=== PATIENT | male | born 1975 | race Caucasian/White ===

== ENCOUNTER → 2023-05-29 14:27 | Outpatient (REF) | payer BC, SELFPAY | LOC: HWRAD 14:27 | PROVIDERS: ATTENDING PHYSICIAN Nurse Practitioner Family | DX: R50.9 Fever, unspecified (principal); R05.9 Cough, unspecified; R53.83 Other fatigue | CPT/HCPCS: 71046 ==

== ENCOUNTER → 2023-06-24 07:17 | Outpatient (REF) | payer BC, SELFPAY | LOC: DHCBS HW 07:17 | PROVIDERS: ATTENDING PHYSICIAN Internal Medicine Cardiovascular Disease; FAMILY PHYSICIAN Nurse Practitioner Family | DX: I51.7 Cardiomegaly (principal) | CPT/HCPCS: 93306 ==

== ENCOUNTER 2024-04-20 12:00 | Emergency (ER) | payer BC, SELFPAY ==
[2024-04-20 12:08] VITALS: BP 139/102
[2024-04-20 12:54] LABS: % Basophils 0.5 % (0-2); % Eosinophils 1.1 % (0-6); % Immature Granulocytes 0.6 % (0-0.5); % Lymphocytes 19.7 % (20.5-51.1); % Neutrophils 65.1 % (42.2-75.2); Absolute Eosinophils 0.1 10^3/uL (0-0.7); Absolute Immature Granulocytes 0.1 10^3/uL (0-0.05); Absolute Lymphocytes 1.6 10^3/uL (1.2-3.4); Absolute Monocytes 1.1 10^3/uL (0.1-0.6); Absolute Neutrophils 5.4 10^3/uL (1.4-6.5); Hematocrit 47.4 % (39.0-52.0); Mean Corp Hgb Conc. 31.6 g/dL (33.0-37.0); Mean Corpuscular Volume 85.4 fL (80.0-94.0); Nucleated Red Blood Cells % 0 % (-); Platelet Count 212 10^3/uL (130-400); Red Blood Cell Count 5.55 10^6/uL (4.70-6.10); Red Cell Dist. Width 14.3 % (11.5-14.5); White Blood Cell Count 8.3 10^3/uL (4.8-10.8)
--- NOTE | 2024-04-20 12:54 | ED.GENMED ---
History of Present Illness
General
Chief Complaint: Abdominal Symptoms
Source: patient
Exam Limitations: none
Time Seen by Provider: 04/20/24 12:22
History of Present Illness
History of Present Illness:
48yoM with a history of hypertension and prior aortic dissection in 2016 s/p repair presenting for evaluation of diarrhea. Symptoms have been ongoing for 4 days. He is having 10+ watery bowel movements daily. He also reports nausea but denies any
vomiting. He has not been eating much due to his symptoms and has been having early satiety. He is having intermittent RLQ abdominal pain which is a sharp pain that lasts about 10 seconds at a time. This has occurred about 6x in the past few days.
He denies any current pain. No fevers. No sick contacts, recent travel, suspicious food intake, or recent antibiotics. Prior abdominal surgeries include a cholecystectomy. He reports having 60% of his small intestine removed in 2016 after his aortic
dissection.
Past History
Past History
ED Past Medical History: HTN, Psychiatric, Other (Aortic dissection. Diverticulitis, ) and Other (Diverticulitis)
ED Past Surgical History: Bowel resection (Small bowel 6% removed, and 15% sigmoid resection), Cholecystectomy and Other (ruptured AAA repair, Left carotid subclavian bypass. )
Social History
Tobacco: Smoker
Alcohol: None
Drug: None
Personal:
Living: with family
Employment: Employed
Phy Exam
General Physical Exam
General Presentation: well appearing and no apparent distress
General age: appears stated age
General Skin: warm and dry
General Habitus: normal
General Mental: alert
General Hydration: appears well hydrated
ENT Exam
ENT Exam: normocephalic
Pulmonary Exam
Pulmonary Exam: no respiratory distress
Gastrointestinal Exam
Gastrointestinal Exam: non tender, soft, non distended, surgical scar and other (Chronic wound noted to abdominal wall without signs of infection.)
Neurological Exam
Neurological Exam: alert
[place] Coma Scale
Eye Opening: Spontaneous
Verbal Response: Oriented
Motor Response: Obeys Commands
GCS Total Score: 15
Skin Exam
Skin Exam: normal color and warm/dry
Psychiatric Exam
Psychiatric Exam: normal mood/affect
Course
Orders/Labs/Results
Orders:
Orders
04/20/24 12:36
IV Insert/Care/Rem.- Treatment PRN
04/20/24 12:42
Complete Blood Count/With Diff Urgent
Comprehensive Metabolic Panel Urgent
Lipase Urgent
04/20/24 12:51
0.9% Sodium Chloride 500 ml [Nss] 500 ml IV BOLUS
Iohexol [Omnipaque] See Protocol PO NOW STA
04/20/24 12:52
CT Abd/pel W Iv And Oral Contr Urgent
Comment:
Reason For Exam: abd pain, diarrhea
04/20/24 13:03
COVID-19 Antigen Urgent
Source: Nasal Swab
Influenza A+B Rapid Molecular Urgent
AR[facility] Source: Nasal Swab
Specimen Description:
04/20/24 13:36
Urinalysis Reflex To Culture Urgent
Date Specimen was Collected: 04/20/24
Time Specimen was Collected: 12:36
Urine Microscopic Reflex Cult Urgent
CDIFF [C difficile Antigen & Toxins] Urgent
[facility]MIN Source: Feces/Stool
Specimen Description:
Date Specimen was Collected: 04/20/24
Time Specimen was Collected: 13:35
Norovirus by PCR Urgent
[facility]MIN Source: Feces/Stool
Specimen Description:
Date Specimen was Collected: 04/20/24
Time Specimen was Collected: 13:35
Stool Culture Urgent
ARMIN Source: Feces/Stool
Specimen Description:
Date Specimen was Collected: 04/20/24
Time Specimen was Collected: 13:35
Abnormal Lab Results
04/20/24 04/20/24
12:42 13:36
MCHC 31.6 L g/dL
(33.0-37.0)
Abs Immat Gran (auto) 0.1 H 10^3/uL
(0-0.05)
Absolute Monos (auto) 1.1 H 10^3/uL
(0.1-0.6)
Immature Gran % 0.6 H %
(0-0.5)
Lymphocytes % 19.7 L %
(20.5-51.1)
Monocytes % 13.0 H %
(1.7-9.3)
Carbon Dioxide 31 H mmol/L
(22-30)
Glucose 101 H mg/dl
(70-99)
Ur Occult Blood Reflex 1+ A
(Negative)
Urine RBC 3-6 A /HPF
(0-2)
Urine Bacteria (Reflex) Few A
(Negative)
04/20/24 12:42
04/20/24 12:42
Vital Signs
Initial and Last Documented VS:
Initial Vital Signs
Temp Pulse Resp BP Pulse Ox
100.1 F 89 18 139/102 97
04/20/24 12:08 04/20/24 12:08 04/20/24 12:08 04/20/24 12:08 04/20/24 12:08
Last Documented Vital Signs
Temp Pulse Resp BP Pulse Ox
100.1 F 89 19 138/85 96
04/20/24 12:08 04/20/24 16:10 04/20/24 16:10 04/20/24 16:10 04/20/24 16:10
MDM/Problems Addressed
Differential Diagnosis Includes:
48yoM here with diarrhea x 4 days. Also having nausea and intermittent abd pain. No fevers at home. Temp 100.1 in triage. Remainder of vitals are normal. He is well appearing in no distress. Exam reassuring. Differential diagnosis includes but is
not limited to: viral illness, C.diff, bacterial diarrhea, colitis, diverticulitis, dehydration
Initial ED plan: Check abdominal labs, stool testing, COVID/flu swab, and CT abdomen. IV fluid bolus.
*Critical Care Note
Total Time (30-74mins, 75-104mins- exclusive of procedures): Not Applicable
Update Note
Update Note:
Labs unremarkable including normal white count, electrolytes, and renal function. UA with microscopic hematuria without signs of infection. COVID/flu testing negative. CT abdomen is negative for acute findings. C. difficile testing negative.
Remainder of stool studies are pending. Patient remains well-appearing on reassessment. No indication for hospitalization. Supportive care discussed and prescription provided for Zofran. Advised follow-up with PCP. He was also given a referral
to urology for his microscopic hematuria. ED return precautions discussed. He was discharged in stable condition.
ED Attending Note
-
Portions of this chart may have been created with voice recognition software.� Occasional wrong word or��sound alike� substitutions may have occurred due to the inherent limitations of voice recognition software.
Discharge Plan
Departure
Patient Disposition: Home (Routine Discharge)
Date of Disposition: 04/20/24
Time of Disposition: 15:52
Patient with high blood pressure during this ER visit?: No
Discharge Problem:
Acute diarrhea, Microscopic hematuria
Instructions: Diarrhea in adults - ED discharge instructions
Prescriptions:
New
ondansetron 4 mg tablet,disintegrating
4 mg PO Q6H PRN (Reason: nausea and vomiting) Qty: 20 0RF
No Action
aspirin 81 MG tablet,delayed release (DR/EC)
81 mg PO DAILY
lisinopril-hydrochlorothiazide 1 EACH tablet
1 ea PO DAILY 90 Days Qty: 90 0RF
Rx Instructions:
Please apply [facility] program pricing. Patient without Rx insurance. Thank you.
hydrochlorothiazide 12.5 MG tablet
12.5 mg PO DAILY
ondansetron HCl 4 MG tablet
4 mg PO DAILYPRN PRN (Reason: nausea/vomiting)
acetaminophen [Tylenol Extra Strength] 500 MG tablet
1,000 mg PO BIDPRN PRN (Reason: mild pain)
meclizine 25 MG tablet
25 mg PO BID
escitalopram oxalate 10 MG tablet
10 mg PO HS
Patient Comments:
pt. takes half tablet.
amoxicillin-pot clavulanate 1 TABLET tablet
1 tab PO Q12 Qty: 19 0RF
prednisone 20 mg tablet
40 mg PO DAILY Qty: 10 0RF
Referrals:
George Marie MD [Active] -
Marky Betancourt MD [Family Provider] -
Activity Restrictions/Additional Instructions:
Drink plenty of fluids and eat a bland diet (bananas, rice, applesauce, toast). Take Zofran as needed for nausea.
Please follow-up with your family doctor in 3-4 days. You should also follow-up with urology for the blood seen in your urine.
Return to the ER with any new or worsening symptoms.
Interventions
Interventions:
*Risk Screen - Suicide Last Done: 04/20/24 12:08
*General Assessment Last Done: 04/20/24 12:08
*Neglect/Abuse Screening Last Done: 04/20/24 12:08
ED- Fall Risk Assessment Last Done: 04/20/24 12:43
*Nursing Disposition Last Done: 04/20/24 16:10
WF-Hjagcq-Aamjxqfxct Assessment Last Done: 04/20/24 12:43
Discharge Date and Time
Discharge Date/Time: 04/20/24 16:11
Print Language: AMHARIC
[2024-04-20 13:01] VITALS: BMI 32.0
[2024-04-20] MEDS: OMNIPAQUE 50 ML PO (13:01)
[2024-04-20] MEDS: NSS 500 IV (13:01)
[2024-04-20 13:08] LABS: ALT (SGPT) 31 U/L (0-50); AST (SGOT) 24 U/L (17-59); Alkaline Phosphatase 78 U/L (38-126); Blood Urea Nitrogen 18 mg/dl (9-20); Calcium 9.7 mg/dl (8.4-10.2); Carbon Dioxide 31 mmol/L (22-30); Chloride 101 mmol/L (98-107); Estimated Creatinine Clearance 96 ml/min; Glucose 101 mg/dl (70-99); Lipase 76 U/L (23-300); Potassium 4.1 mmol/L (3.5-5.1); Sodium 139 mmol/L (135-145); Total Bilirubin 0.7 mg/dl (0.2-1.3); Total Protein 7.7 g/dl (6.3-8.2); eGFR > 60.00
[2024-04-20 13:31] LABS: COVID-19 Antigen Negative (Negative)
[2024-04-20 14:08] LABS: Urine Albumin Trace (Neg - Trace); Urine Bilirubin Negative (Negative); Urine Character Clear (Clear); Urine Color Yellow; Urine Glucose Negative (Negative); Urine Ketone Negative (Negative); Urine Leukocyte Negative (Negative); Urine Nitrite Negative (Negative); Urine Occult Blood 1+ (Negative); Urine Urobilinogen Negative (Neg - 1+)
[2024-04-20 14:26] LABS: Urine Bacteria Few (Negative); Urine Mucus Many; Urine White Cell 0-2 /HPF (0-5)
[2024-04-20 16:10] VITALS: BP 138/85
== END 2024-04-20 16:11 | disposition home or self-care (01) ==
LOC: EMR 12:00
PROVIDERS: Physician Assistant; EMERGENCY PHYSICIAN Emergency Medicine; FAMILY PHYSICIAN Ophthalmology; REFERRING PHYSICIAN Nurse Practitioner Family
DX: R19.7 Diarrhea, unspecified (principal); R31.29 Other microscopic hematuria; I10 Essential (primary) hypertension; F17.200 Nicotine dependence, unspecified, uncomplicated
CPT/HCPCS: 96360; 99284; 74177; 80053; 81003; 81015; 83690; 85025; 87045; 87046; 87324; 87427; 87449; 87502; 87798; 87811; Q9967

== ENCOUNTER → 2025-03-04 12:13 | Outpatient (REF) | payer BC, SELFPAY | LOC: WOUND 12:13 | PROVIDERS: ATTENDING PHYSICIAN Surgery; FAMILY PHYSICIAN Nurse Practitioner Family | DX: T83.728A Exposure of other implanted mesh into organ or tissue, initial encounter (principal); S31.109A Unspecified open wound of abdominal wall, unspecified quadrant without penetration into peritoneal cavity, initial encounter; I10 Essential (primary) hypertension; Y84.8 Other medical procedures as the cause of abnormal reaction of the patient, or of later complication, without mention of misadventure at the time of the procedure | CPT/HCPCS: 99203 ==

== ENCOUNTER → 2025-03-09 09:27 | Outpatient (REF) | payer BC, SELFPAY | LOC: RAD 09:27 | PROVIDERS: ATTENDING PHYSICIAN Nurse Practitioner Family | DX: R63.4 Abnormal weight loss (principal); R19.5 Other fecal abnormalities; R14.0 Abdominal distension (gaseous); R63.0 Anorexia | CPT/HCPCS: 74177; Q9967 ==

== ENCOUNTER 2025-03-12 13:02 | Outpatient (REF) | payer BC, SELFPAY | END 2025-03-12 23:59 | disposition home or self-care (01) | LOC: WOUND 13:02 | PROVIDERS: ATTENDING PHYSICIAN Surgery; FAMILY PHYSICIAN Nurse Practitioner Family | DX: T83.728A Exposure of other implanted mesh into organ or tissue, initial encounter (principal); S31.109A Unspecified open wound of abdominal wall, unspecified quadrant without penetration into peritoneal cavity, initial encounter; I10 Essential (primary) hypertension; F17.200 Nicotine dependence, unspecified, uncomplicated; Y84.8 Other medical procedures as the cause of abnormal reaction of the patient, or of later complication, without mention of misadventure at the time of the procedure | CPT/HCPCS: 99213 ==

== ENCOUNTER 2025-03-19 08:27 | Outpatient (REF) | payer BC, SELFPAY | END 2025-03-19 23:59 | disposition home or self-care (01) | LOC: WOUND 08:27 | PROVIDERS: ATTENDING PHYSICIAN Surgery; FAMILY PHYSICIAN Nurse Practitioner Family | DX: T83.728A Exposure of other implanted mesh into organ or tissue, initial encounter (principal); S31.109S Unspecified open wound of abdominal wall, unspecified quadrant without penetration into peritoneal cavity, sequela; I10 Essential (primary) hypertension; F17.200 Nicotine dependence, unspecified, uncomplicated; Y84.8 Other medical procedures as the cause of abnormal reaction of the patient, or of later complication, without mention of misadventure at the time of the procedure | CPT/HCPCS: 99213 ==

== ENCOUNTER 2025-04-09 06:36 | Day surgery (SDC) | payer BC, SELFPAY | END 2025-04-09 14:17 | disposition home or self-care (01) | LOC: GI 06:36 | PROVIDERS: ATTENDING PHYSICIAN Internal Medicine Gastroenterology | DX: R63.4 Abnormal weight loss (principal); R63.0 Anorexia; K29.70 Gastritis, unspecified, without bleeding; K29.80 Duodenitis without bleeding | CPT/HCPCS: 43239; 88305; 88342 ==

== ENCOUNTER 2025-04-15 14:03 | Outpatient (REF) | payer BC, SELFPAY | END 2025-04-15 23:59 | disposition home or self-care (01) | LOC: WOUND 14:03 | PROVIDERS: ATTENDING PHYSICIAN Registered Nurse; FAMILY PHYSICIAN Nurse Practitioner Family | DX: T83.728A Exposure of other implanted mesh into organ or tissue, initial encounter (principal); S31.109S Unspecified open wound of abdominal wall, unspecified quadrant without penetration into peritoneal cavity, sequela; I10 Essential (primary) hypertension; F17.200 Nicotine dependence, unspecified, uncomplicated | CPT/HCPCS: 99213 ==